=== PATIENT | male | born 1950 | race Caucasian/White ===

== ENCOUNTER 2018-07-27 10:14 | Day surgery (SDC) | payer MEDICARE, OTHER ==
[~2018-07-27 10:14] MED LIST: PROPOFOL INJ 200 MG/20 ML VIAL IV ONE
[2018-07-27] MEDS ORDERED: PROPOFOL INJ 200 MG/20 ML VIAL IV ONE (11:55)
[2018-07-27 12:31] VITALS: BP 129/57
--- NOTE | 2018-07-27 14:39 | Operative Report ---
Operative Report DATE OF SURGERY: 07/27/18 Operative Report: The risks, benefits and alternatives of the procedure including the risk of bleeding, perforation requiring surgery have been explained to the patient in detail and informed consent has been obtained. Patient is placed in a left, lateral decubital position. Timeout was called. Propofol medication is administered. Rectal examination is done which did not reveal any masses, tears or fissures. An Olympus videoscope was introduced into the patient's rectum. The scope was then carefully advanced all the way to the cecum. The cecum was identified by the usual anatomical landmarks of the ileocecal valve as well as the appendiceal office. Photodocumentation is obtained. Scope was then sequentially pulled back via the various segments of the colon including the ascending colon, hepatic flexure, transverse colon, splenic flexure, descending colon and finally into the rectosigmoid portions of the colon. Retroflexion maneuver was performed. PREOPERATIVE DIAGNOSIS: Positive blood in stools POSTOPERATIVE DIAGNOSIS: Ulcerated mass noted at the area of the hepatic flexure status post biopsy. The opposite side was injected with submucosal Sasha ink for location during possible surgery OPERATION: Colonoscopy with biopsy. Colonoscopy with submucosal injection of Sasha ink to provide identification of lesion during surgery SURGEON: TONIA BOATENG ANESTHESIA: LMAC TISSUE REMOVED OR ALTERED: As noted above. COMPLICATIONS: None. ESTIMATED BLOOD LOSS: None. INTRAOPERATIVE FINDINGS: As noted above. PROCEDURE: Patient tolerated the procedure well. No immediate postprocedure complications are noted. Patient discharged in good condition. Discharge date 07/27/2018. Discharge diet: Regular. Discharge activity: Regular. 2-3-week follow-up to discuss findings. Patient is instructed to call the office or proceed to the emergency room should there be any further problems or questions. Wait on a biopsy. We will need surgical referral for surgical resection of the lesion.
== END 2018-07-27 12:31 | disposition home or self-care (01) ==
LOC: END 10:14
PROVIDERS: ATTEND Internal Medicine Gastroenterology
DX: K63.89 Other specified diseases of intestine (principal); K64.8 Other hemorrhoids; R19.5 Other fecal abnormalities; E78.00 Pure hypercholesterolemia, unspecified; E11.9 Type 2 diabetes mellitus without complications; M10.9 Gout, unspecified; I11.0 Hypertensive heart disease with heart failure; G45.0 Vertebro-basilar artery syndrome; Z87.891 Personal history of nicotine dependence; Z79.899 Other long term (current) drug therapy; Z79.84 Long term (current) use of oral hypoglycemic drugs
CPT/HCPCS: 45380; 45381; 82962; 88305 ×2; J2704; 811

== ENCOUNTER → 2018-08-03 | Outpatient (CLI) | payer MEDICARE ==
--- NOTE | 2018-08-03 13:37 | EKG REPORT ---
SEVERITY:- NORMAL ECG - SINUS RHYTHM : Confirmed by: Tito Magaña MD 03-Aug-2018 13:36:21
[2018-08-03 14:03] LABS: ABSOLUTE EOSINOPHILS # (AUTO) 0.2 10^3/uL (0.0-0.6); ABSOLUTE LYMPHOCYTES (AUTO) 1.9 10^3/uL (0.5-4.7); ABSOLUTE MONOCYTES (AUTO) 0.8 10^3/uL (0.1-1.4); ABSOLUTE NEUT (AUTO) 3.7 10^3/uL (1.7-8.2); BASOPHILS % (AUTO) 0.5 % (0-2); EOSINOPHILS % (AUTO) 3.3 % (0-6); HEMATOCRIT 40.1 % (37.9-51.0); HEMOGLOBIN 13.9 g/dL (13.5-17.0); LYMPHOCYTES % (AUTO) 28.6 % (13-45); MEAN CORPUSCULAR HEMOGLOBIN 29.3 pg (27.0-33.4); MEAN CORPUSCULAR HGB CONC 34.7 g/dL (32.0-36.0); MEAN CORPUSCULAR VOLUME 85 fl (80-97); MONOCYTES % (AUTO) 11.6 % (3-13); PLATELET COUNT 299 10^3/uL (150-450); RED BLOOD COUNT 4.74 10^6/uL (4.35-5.55); RED CELL DISTRIBUTION WIDTH 13.9 % (11.5-14.0); TOTAL CELLS COUNTED % (AUTO) 100 %; WHITE BLOOD COUNT 6.6 10^3/uL (4.0-10.5)
[2018-08-03 14:23] LABS: ALANINE AMINOTRANSFERASE 35 U/L (21-72); ALBUMIN 4.6 g/dL (3.5-5.0); ALKALINE PHOSPHATASE 86 U/L (38-126); ANION GAP 13 (5-19); ASPARTATE AMINO TRANSFERASE 22 U/L (17-59); BILIRUBIN,DIRECT 0.2 mg/dL (0.0-0.4); BILIRUBIN,TOTAL 0.5 mg/dL (0.2-1.3); BLOOD UREA NITROGEN 27 mg/dL (7-20); CALCIUM 10.5 mg/dL (8.4-10.2); CARBON DIOXIDE 26 mmol/L (22-30); CHLORIDE 96 mmol/L (98-107); GLUCOSE 250 mg/dL (75-110); POTASSIUM 4.9 mmol/L (3.6-5.0); SODIUM 135.1 mmol/L (137-145); TOTAL PROTEIN 6.9 g/dL (6.3-8.2)
== END ==
LOC: OD 12:46
PROVIDERS: ATTEND Surgery
DX: C18.3 Malignant neoplasm of hepatic flexure (principal)
CPT/HCPCS: 36415; 80053; 85025; 93005; 93010

== ENCOUNTER → 2018-08-06 | Outpatient (CLI) | payer MEDICARE ==
--- NOTE | 2018-08-06 13:18 | RADIOLOGY REPORT (SQ) ---
EXAM DESCRIPTION: CT CHEST WITH COMPLETED DATE/TIME: 08/06/2018 10:46 am REASON FOR STUDY: COLON CA OF THE HEPATIC FLEXURE C18.3 MALIGNANT NEOPLASM OF HEPATIC FLEXURE COMPARISON: None. TECHNIQUE: CT scan of the chest performed using helical scanning technique with dynamic intravenous contrast injection. Images reviewed with lung, soft tissue and bone windows. Reconstructed coronal and sagittal MPR and MIP images reviewed. All images stored on PACS. All CT scanners at this facility use dose modulation, iterative reconstruction, and/or weight based d osing when appropriate to reduce radiation dose to as low as reasonably achievable (ALARA). [facility]: Dose Right [facility]: CareDose [facility]: Dose Right [facility]: Teradose 4D [facility]: [employer] CONTRAST TYPE AND DOSE: 83 mL Omnipaque 350- low osmolar. RENAL FUNCTION: Creatinine 0.89. RADIATION DOSE: . LIMITATIONS: None. FINDINGS: LUNGS AND PLEURA: Mild centrilobular emphysema. 7 mm nodule in the posterior right lung b ase near the posterior costophrenic angle (axial series 6, image 101). There is also a 3 mm nodule i n the medial right lung base (axial series 6, image 98). No other nodules or masses. No infiltrates . No pneumothorax. No effusions. HILAR AND MEDIASTINAL STRUCTURES: No identified masses or abnormal nodes. HEART AND VASCULAR STRUCTURES: No aneurysm or dissection. No central pulmonary emboli. No pericardi al effusion. HARDWARE: None in the chest. UPPER ABDOMEN: See separate report of the CT of the abdomen. THYROID AND OTHER SOFT TISSUES: No masses. No adenopathy. BONES: No significant finding. OTHER: No other significant finding. IMPRESSION: 3 MM AND 7 MM NODULES IN THE RIGHT LUNG BASE, NONSPECIFIC. GIVEN THE HISTORY OF COLON C ANCER, EARLY METASTASES ARE NOT EXCLUDED. THESE ARE TOO SMALL FOR FURTHER EVALUATION WITH PET SCAN A ND NOT AMENABLE TO PERCUTANEOUS CT BIOPSY. FOLLOW-UP CT RECOMMENDED TO MONITOR FOR ANY SIGNIFICANT C HANGE. NO OTHER SIGNIFICANT FINDINGS IN THE CHEST. TECHNICAL DOCUMENTATION: JOB ID: [id number] Quality ID # [id number]: Final reports with documentation of one or more dose reduction techniques (e.g., Au tomated exposure control, adjustment of the mA and/or kV according to patient size, use of iterative reconstruction technique) 2010 [employer]- All Rights Reserved Reading location - IP/workstation name: [email or web address]
--- NOTE | 2018-08-06 13:33 | RADIOLOGY REPORT (SQ) ---
EXAM DESCRIPTION: CT ABD/PELVIS WITH IV ORAL COMPLETED DATE/TIME: 08/06/2018 10:46 am REASON FOR STUDY: COLON CA OF THE HEPATIC FLEXURE C18.3 MALIGNANT NEOPLASM OF HEPATIC FLEXURE COMPARISON: None. TECHNIQUE: CT scan of the abdomen and pelvis performed using helical scanning technique with dynamic intravenous contrast injection. No oral contrast. Images reviewed with lung, soft tissue, and bone windows. Reconstructed coronal and sagittal MPR images reviewed. Delayed images for evaluation of the urinary system also acquired. All images stored on PACS. All CT scanners at this facility use dose modulation, iterative reconstruction, and/or weight based d osing when appropriate to reduce radiation dose to as low as reasonably achievable (ALARA). [facility]: Dose Right [facility]: CareDose [facility]: Dose Right [facility]: Teradose 4D [facility]: [employer] CONTRAST TYPE AND DOSE: contrast/concentration: Isovue 350.00 mg/ml; Total Contrast Delivered: 83.0 ml; Total Saline Delivered: 69.0 ml RENAL FUNCTION: Creatinine 0.89. RADIATION DOSE: CT Rad equipment meets quality standard of care and radiation dose reduction techniq ues were employed. CTDIvol: 4.7 - 5.2 mGy. DLP: 678 mGy-cm.. LIMITATIONS: None. FINDINGS: LOWER CHEST: No significant findings. No nodules or infiltrates. LIVER: Normal size. No masses. No dilated ducts. SPLEEN: Normal size. No focal lesions. PANCREAS: No masses. No significant calcifications. No adjacent inflammation or peripancreatic fluid collections. Pancreatic duct not dilated. GALLBLADDER: No identified stones by CT criteria. No inflammatory changes to suggest cholecystitis. ADRENAL GLANDS: No significant masses or asymmetry. RIGHT KIDNEY AND URETER: No solid masses. No significant calcifications. No hydronephrosis or hyd roureter. LEFT KIDNEY AND URETER: Congenital malrotation. No solid masses. Possible duplication of the colle cting system versus altered positioning due to malrotation. 6 x 9 mm calculus in the lower renal pel vis. Average Hounsfield units a just over 1,000. No hydronephrosis or hydroureter. AORTA AND VESSELS: No aneurysm. No dissection. Renal arteries, SMA, celiac without stenosis. RETROPERITONEUM: No retroperitoneal adenopathy, hemorrhage or masses. BOWEL AND PERITONEAL CAVITY: Small focal area of mucosal soft tissue prominence in the lumen of the h epatic flexure (axial image 23 and 24). No masses or inflammatory changes. No free fluid or peritone al masses. APPENDIX: Normal. PELVIS: No mass. No free fluid. Normal bladder. ABDOMINAL WALL: No masses. No hernias. BONES: No significant or acute findings. OTHER: No other significant finding. IMPRESSION: 1. CONGENITAL MALROTATION OF THE LEFT KIDNEY. 6 X 9 MM NONOBSTRUCTING CALCULUS IN THE LOWER POLE. P OSSIBLE DUPLICATION OF THE COLLECTING SYSTEM VERSUS ALTERED POSITIONING DUE TO MALROTATION. 2. THE HISTORY INDICATES COLON CANCER IN THE HEPATIC FLEXURE. THERE IS A SMALL FOCAL AREA OF MUCOSAL SOFT TISSUE PROMINENCE IN THE HEPATIC FLEXURE OF THE COLON WHICH HAS A NONSPECIFIC APPEARANCE ON CT BUT COULD INDICATE A SMALL MUCOSAL LESION. NO SIGNIFICANT THICKENING OF THE WALL OR EXTENSION INTO T HE PERICOLONIC TISSUES. 3. NO OTHER SIGNIFICANT OR ACUTE FINDING IN THE ABDOMEN OR PELVIS ON CT SCAN WITH IV CONTRAST. NO CT EVIDENCE OF METASTATIC INVOLVEMENT IN THE ABDOMEN OR PELVIS. TECHNICAL DOCUMENTATION: JOB ID: [id number] Quality ID # [id number]: Final reports with documentation of one or more dose reduction techniques (e.g., Au tomated exposure control, adjustment of the mA and/or kV according to patient size, use of iterative reconstruction technique) 2010 [employer]- All Rights Reserved Reading location - IP/workstation name: [email or web address]
== END ==
LOC: RAD 10:07
PROVIDERS: ATTEND Surgery
DX: C18.3 Malignant neoplasm of hepatic flexure (principal)
CPT/HCPCS: 71260; 74177

== ENCOUNTER 2018-08-27 08:12 | Inpatient (IN) | payer MEDICARE ==
[~2018-08-27 08:12] MED LIST changes: +CEFAZOLIN 1 GM/D5W RTU 1 GM/50 ML RTUPB IV ONE; +CEFAZOLIN 1 GM/D5W RTU 1 GM/50 ML RTUPB IV PRN; +LACTATED RINGERS 1000 ML IV PRN; +LIDOCAINE 0.5% INJ-PF (5 MG/ML) 50 ML SDV SUBCUT PRN; +METRONIDAZOLE 500 MG/NS RTU 500 MG/100 ML RTUPB IV ONE; +METRONIDAZOLE 500 MG/NS RTU 500 MG/100 ML RTUPB IV PRN; -PROPOFOL INJ 200 MG/20 ML VIAL IV ONE
[2018-08-27] MEDS ORDERED: ROCURONIUM BROMIDE INJ 50 MG/5 ML VIAL IV ONE (10:00)
[2018-08-27] MEDS ORDERED: ONDANSETRON HCL INJ/PF 4 MG/2 ML SDV ONE (10:00)
[2018-08-27] MEDS ORDERED: GLYCOPYRROLATE 1 MG/5 ML SYRINGE ONE (10:00)
[2018-08-27] MEDS ORDERED: DEXAMETHASONE SOD PHOSPHATE INJ 4 MG/1 ML VIAL ONE (10:00)
[2018-08-27] MEDS ORDERED: NEOSTIGMINE METHYLSULFATE 10 MG/10 ML VIAL ONE (10:00)
[2018-08-27] MEDS ORDERED: PHENYLEPHRINE HCL INJ/PF 10 MG/1 ML SDV ONE (10:00)
[2018-08-27] MEDS ORDERED: SUCCINYLCHOLINE CHLORIDE INJ 200 MG/10 ML VIAL ONE (10:00)
[2018-08-27] MEDS ORDERED: HYDROMORPHONE HCL INJ/PF 2 MG/ML AMPULE ONE (16:08)
[2018-08-27] MEDS ORDERED: FENTANYL CITRATE INJ/PF 100 MCG/2 ML AMPUL ONE (16:08)
[2018-08-27] MEDS ORDERED: ACETAMINOPHEN 1,000 MG/100 ML RTUPB IV ONE (16:08)
[2018-08-27] MEDS ORDERED: PROPOFOL INJ 200 MG/20 ML VIAL IV ONE (16:08)
[2018-08-27] MEDS ORDERED: MIDAZOLAM 2 MG/2 ML INJ ONE (16:08)
[2018-08-27] MEDS ORDERED: BUPIVACAINE HCL 0.25% /EPINEPHRINE INJ/PF 30 ML SDV ONE (16:28)
[2018-08-27] MEDS ORDERED: DEXTROSE 50%-WATER 25 GM/50 ML DISP.SYRIN IV ONE (16:29)
[2018-08-27] MEDS ORDERED: RINGERS SOLUTION,LACTATED 1,000 ML IV ONE (17:15)
[2018-08-27] MEDS ORDERED: MEPERIDINE HCL/PF INJ 25 MG/1 ML DISP.SYRIN IV PRN (17:27)
[2018-08-27] MEDS ORDERED: DIPHENHYDRAMINE HCL 50 MG/ML VIAL IV PRN (17:27)
[2018-08-27] MEDS ORDERED: MORPHINE SULFATE 10 MG/ML INJ IV PRN ×2 (17:27→19:12)
[2018-08-27] MEDS ORDERED: FENTANYL CITRATE INJ/PF 100 MCG/2 ML AMPUL IV PRN ×3 (17:27)
[2018-08-27] MEDS ORDERED: ONDANSETRON HCL INJ/PF 4 MG/2 ML SDV IV PRN (17:27)
--- NOTE | 2018-08-27 19:10 | Operative Report ---
Nonrecallable Operative Report DATE OF SURGERY: 08/27/18 PREOPERATIVE DIAGNOSIS: right colon cancer POSTOPERATIVE DIAGNOSIS: right colon cancer OPERATION: laparoscopic right hemicolectomy SURGEON: OSKAR LABOY ANESTHESIA: GA TISSUE REMOVED OR ALTERED: right colon COMPLICATIONS: none ESTIMATED BLOOD LOSS: 50cc INTRAOPERATIVE FINDINGS: no obivious metastatic disease PROCEDURE: see dictation
--- NOTE | 2018-08-27 20:19 | OPERATIVE REPORT E ---
Operative Report NAME: GILBERT ALCALA : 1950 AGE: 68Y DATE OF SURGERY: 08/27/2018 ROOM: OR PREOPERATIVE DIAGNOSIS: RIGHT COLON CANCER. POSTOPERATIVE DIAGNOSIS: RIGHT COLON CANCER. OPERATION: LAPAROSCOPIC RIGHT HEMICOLECTOMY. SURGEON: OSKAR LABOY M.D. PROCEDURE: The patient was brought to the operating room in awake, alert, and stable condition, placed on the operating table in supine position and induced under general anesthesia, and intubated. The abdomen was prepped and draped in the usual sterile manner for the procedure. A Veress needle was placed into the umbilicus and the abdomen was insufflated with 6 liters of CO2 gas. An infraumbilical 10 mm incision was made with a 12 blade, and a 10 mm port placed into the abdominal cavity. Intraabdominal visualization revealed no evidence of a Veress needle or trocar injury. Two right-sided abdominal ports were placed under direct vision. They were 5 mm. A right lower quadrant 5 mm port was placed under direct vision. We identified the colon and the liver. The liver had normal anatomy and contour. There was no evidence of any metastatic disease. I retracted the omentum anteriorly and noted the transverse colon. I began at the middle colic vessels and mobilized the proximal transverse colon off the omental apron with LigaSure device, and carried this around the hepatic flexure with the LigaSure device. At this point, we identified the area where it had been previously tattooed by the galley stripper. I continued around the peritoneal reflection down the ascending colon to the cecum. We mobilized the cecum and the peritoneal attachments of the terminal ileum from the right lower quadrant with the LigaSure device. Finally, when we had the entire omentum mobilized, I identified the middle colic vessels and elected to perform a right hemicolectomy just to the right of the middle colic vessels. Once the right colon was deemed floppy enough for delivering through a wound, the pneumoperitoneum was reduced. We made a small transverse incision in the right abdominal wall. We carried that down to the subcutaneous tissue with Bovie cautery. We divided the small lateral aspect of the rectus muscle with Bovie cautery and gained access to the posterior rectus sheath, and opened this up with Bovie cautery. We placed a small ynes retractor into the wound and delivered the right colon and terminal ileum in through the wound. I divided the transverse colon with one firing of the endo-JOJO stapler with a 16 mm load just to the right of the middle colic vessels. We then came across the colonic mesentery next to the right colic artery all the way from the transverse colon through the ileocolic artery to the terminal ileum. At approximately 5 to 8 cm proximal to the terminal ileum, I divided the ileum and removed the specimen. We then performed a functional end-to-end anastomosis between the terminal ileum and the transverse colon. This was sewn in 2 layers, the posterior layer being 2-0 silk sutures and the running inner layer 3-0 Vicryl suture. Once the anastomosis was accomplished, we closed the mesenteric defect with a running 3-0 Maxon suture and returned the colon back to the abdominal cavity. We closed the posterior rectus sheath with a running 0 PDS suture and the anterior sheath was closed with interrupted 0 Vicryl sutures. We then reexplored the abdominal cavity and looked at our anastomosis. It appeared to be healthy. There was no evidence of any bleeding. The mesenteric defect had been closed successfully and it was in good orientation. We therefore reduced the pneumoperitoneum and we elected to then close all skin incisions. These were all closed with intracuticular 3-0 Biosyn suture. Steri-Strips completed the procedure. Estimated blood loss was less than 50 mL. Sponge and needle counts were correct x2. The patient was awakened in the operating room, extubated, and transferred to recovery in stable condition. No complications. DICTATING PHYSICIAN: OSKAR LABOY M.D. [id number] PHY#: [id number] ID: [id number] JOB#: [id number] ACCT: [id number] cc:OSKAR LABOY M.D. > MTDD
[2018-08-27] MEDS: HEPARIN SOD (PORCINE) 5,000 UNIT/ML 1 ML SYRINGE SUBCUT SCH (23:11)
[2018-08-27] MEDS: POTASSI CL 20 MEQ/D5-1/2NS 1L 1,000 ML IV PRN (23:33)
[2018-08-28] MEDS: HEPARIN SOD (PORCINE) 5,000 UNIT/ML 1 ML SYRINGE SUBCUT SCH ×3 (06:31→22:05)
[2018-08-28 06:52] LABS: ABSOLUTE LYMPHOCYTES (AUTO) 1.3 10^3/uL (0.5-4.7); ABSOLUTE MONOCYTES (AUTO) 0.8 10^3/uL (0.1-1.4); ABSOLUTE NEUT (AUTO) 6.1 10^3/uL (1.7-8.2); BASOPHILS % (AUTO) 0.1 % (0-2); EOSINOPHILS % (AUTO) 0.1 % (0-6); HEMATOCRIT 35.5 % (37.9-51.0); HEMOGLOBIN 12.5 g/dL (13.5-17.0); LYMPHOCYTES % (AUTO) 15.8 % (13-45); MEAN CORPUSCULAR HEMOGLOBIN 29.6 pg (27.0-33.4); MEAN CORPUSCULAR HGB CONC 35.3 g/dL (32.0-36.0); MEAN CORPUSCULAR VOLUME 84 fl (80-97); MONOCYTES % (AUTO) 9.5 % (3-13); PLATELET COUNT 260 10^3/uL (150-450); RED BLOOD COUNT 4.23 10^6/uL (4.35-5.55); SEGMENTED NEUTROPHILS % (AUTO) 74.5 % (42-78); TOTAL CELLS COUNTED % (AUTO) 100 %; WHITE BLOOD COUNT 8.2 10^3/uL (4.0-10.5)
[2018-08-28 07:13] LABS: ALANINE AMINOTRANSFERASE 46 U/L (21-72); ALBUMIN 3.4 g/dL (3.5-5.0); ALKALINE PHOSPHATASE 100 U/L (38-126); ANION GAP 8 (5-19); ASPARTATE AMINO TRANSFERASE 29 U/L (17-59); BILIRUBIN,DIRECT 0.3 mg/dL (0.0-0.4); BILIRUBIN,TOTAL 0.8 mg/dL (0.2-1.3); BLOOD UREA NITROGEN 11 mg/dL (7-20); CALCIUM 9.2 mg/dL (8.4-10.2); CARBON DIOXIDE 27 mmol/L (22-30); CHLORIDE 102 mmol/L (98-107); GLUCOSE 259 mg/dL (75-110); POTASSIUM 4.9 mmol/L (3.6-5.0); SODIUM 136.9 mmol/L (137-145)
[2018-08-28] MEDS: POTASSI CL 20 MEQ/D5-1/2NS 1L 1,000 ML IV PRN (09:49)
[2018-08-28] MEDS: CALCIUM CARBONATE 500 MG TAB.CHEW PO PRN ×2 (13:15→22:09)
--- NOTE | 2018-08-28 13:25 | PDOC PROGRESS REPORT ---
Subjective Progress Note for:: 08/28/18 Subjective:: feels well, min pain some reflux Reason For Visit: COLON CANCER Physical Exam Vital Signs: Temp Pulse Resp BP Pulse Ox 99.0 F 72 20 154/72 H 98 08/28/18 12:00 08/28/18 12:00 08/28/18 12:00 08/28/18 12:00 08/28/18 12:00 Intake & Output 08/27/18 08/28/18 08/29/18 06:59 06:59 06:59 Intake Total 3550 1000 Output Total 340 850 Balance 3210 150 Weight 60.4 kg General appearance: PRESENT: no acute distress, cooperative Head exam: PRESENT: atraumatic Eye exam: PRESENT: EOMI, PERRLA Mouth exam: PRESENT: moist Neck exam: PRESENT: full ROM Cardiovascular exam: PRESENT: RRR GI/Abdominal exam: PRESENT: soft Rectal exam: PRESENT: deferred Extremities exam: PRESENT: full ROM Musculoskeletal exam: PRESENT: full ROM Neurological exam: PRESENT: alert, awake, oriented to person, oriented to place, oriented to time, oriented to situation Skin exam: PRESENT: dry Results Laboratory Results: 08/28/18 06:25 08/28/18 06:25 08/27/18 08/28/18 08/28/18 16:56 06:25 06:25 WBC 8.2 RBC 4.23 L Hgb 12.5 L Hct 35.5 L MCV 84 MCH 29.6 MCHC 35.3 RDW 13.0 Plt Count 260 Seg Neutrophils % 74.5 Lymphocytes % 15.8 Monocytes % 9.5 Eosinophils % 0.1 Basophils % 0.1 Absolute Neutrophils 6.1 Absolute Lymphocytes 1.3 Absolute Monocytes 0.8 Absolute Eosinophils 0.0 Absolute Basophils 0.0 Sodium 136.9 L Potassium 4.9 Chloride 102 Carbon Dioxide 27 Anion Gap 8 BUN 11 Creatinine 0.85 Est GFR ( Amer) > 60 Est GFR (Non-Af Amer) > 60 Glucose 259 H Calcium 9.2 Magnesium 1.3 L Total Bilirubin 0.8 AST 29 ALT 46 Alkaline Phosphatase 100 Total Protein 6.0 L Albumin 3.4 L Blood Type O NEGATIVE Antibody Screen NEGATIVE Assessment & Plan - Plan Summary Plan Summary: 1 day post rt heimcolectomy doing well atilio clear liquids cont present course, increase activity awating return of bowel function
[2018-08-28] MEDS ORDERED: DEXTROSE 50%-WATER SYRINGE 12.5 GM/25 ML DOSE IV PRN (17:00)
[2018-08-28] MEDS ORDERED: GLUCAGON,HUMAN RECOMB 1 MG INJ IM PRN (17:00)
[2018-08-28] MEDS ORDERED: DEXTROSE 50%-WATER SYRINGE 25 GM/50 ML DOSE IV PRN (17:00)
[2018-08-28] MEDS ORDERED: DEXTROSE 40% GEL 15 GM TUBE PO PRN (17:00)
[2018-08-28] MEDS ORDERED: DEXTROSE 40% GEL 15 GM TUBE X 2 PO PRN (17:00)
[2018-08-28] MEDS: POTASSI CL 20 MEQ/NS 1L 1000 ML IV PRN (18:25)
[2018-08-28] MEDS ORDERED: INSULIN REG, HUMAN 100 UNIT/ML 3 ML VIAL (PYX) SUBCUT ONE (18:30)
[2018-08-28] MEDS ORDERED: INSULIN REG, HUMAN 100 UNIT/ML 3 ML VIAL (PYX) ONE (18:50)
[2018-08-28] MEDS ORDERED: DIPHENHYDRAMINE HCL 50 MG/ML VIAL ONE (21:48)
[2018-08-28] MEDS ORDERED: DIPHENHYDRAMINE HCL 50 MG/ML VIAL IV ONE (22:00)
[2018-08-28] MEDS: INSULIN REG, HUMAN 100 UNIT/ML 3 ML VIAL (PYX) SUBCUT SCH (22:04)
[2018-08-29] MEDS: HEPARIN SOD (PORCINE) 5,000 UNIT/ML 1 ML SYRINGE SUBCUT SCH ×3 (05:51→22:16)
[2018-08-29] MEDS: POTASSI CL 20 MEQ/NS 1L 1000 ML IV PRN (05:56)
[2018-08-29] MEDS: INSULIN REG, HUMAN 100 UNIT/ML 3 ML VIAL (PYX) SUBCUT SCH ×4 (08:37→22:22)
--- NOTE | 2018-08-29 10:21 | PDOC PROGRESS REPORT ---
Subjective Progress Note for:: 08/29/18 Subjective:: feels well had bm Reason For Visit: COLON CANCER Physical Exam Vital Signs: Temp Pulse Resp BP Pulse Ox 99.6 F 119 H 16 136/79 H 97 08/29/18 08:27 08/29/18 08:27 08/29/18 08:27 08/29/18 08:27 08/29/18 08:27 Intake & Output 08/28/18 08/29/18 08/30/18 06:59 06:59 06:59 Intake Total 3550 3380 Output Total 340 4200 Balance 3210 -820 Weight 60.4 kg General appearance: PRESENT: no acute distress Eye exam: PRESENT: EOMI Mouth exam: PRESENT: moist Respiratory exam: PRESENT: clear to auscultation jayesh Cardiovascular exam: PRESENT: RRR Pulses: PRESENT: normal radial pulses, normal femoral pulses Vascular exam: PRESENT: normal capillary refill GI/Abdominal exam: PRESENT: soft Rectal exam: PRESENT: deferred Extremities exam: PRESENT: full ROM Musculoskeletal exam: PRESENT: full ROM Neurological exam: PRESENT: awake, oriented to person, oriented to place, oriented to time, oriented to situation Psychiatric exam: PRESENT: appropriate affect Skin exam: PRESENT: dry Results Laboratory Results: 08/28/18 06:25 08/28/18 06:25 Assessment & Plan - Plan Summary Plan Summary: pod 2 lap rt heimicolectomy doing well today passed stool x2 (watery,greenish) abd soft, non tender hungry plan will advance to full liqudis prob home in am.
[2018-08-29] MEDS ORDERED: POTASSI CL 20 MEQ/NS 1L 1,000 ML IV PRN (10:23)
[2018-08-30 00:07] VITALS: BP 135/68
[2018-08-30] MEDS: HEPARIN SOD (PORCINE) 5,000 UNIT/ML 1 ML SYRINGE SUBCUT SCH (06:30)
[2018-08-30] MEDS: INSULIN REG, HUMAN 100 UNIT/ML 3 ML VIAL (PYX) SUBCUT SCH ×2 (09:17→11:36)
--- NOTE | 2018-08-30 10:29 | PDOC PROGRESS REPORT ---
Subjective Progress Note for:: 08/30/18 Subjective:: post lap rt hemicolectomy Reason For Visit: COLON CANCER Physical Exam Vital Signs: Temp Pulse Resp BP Pulse Ox 98.2 F 80 16 135/68 H 100 08/30/18 00:00 08/30/18 00:00 08/30/18 00:00 08/30/18 00:00 08/30/18 00:00 Intake & Output 08/29/18 08/30/18 08/31/18 06:59 06:59 06:59 Intake Total 3380 2360 Output Total 4200 2450 Balance -820 -90 Weight 60.4 kg General appearance: PRESENT: no acute distress Head exam: PRESENT: normocephalic Eye exam: PRESENT: EOMI Mouth exam: PRESENT: moist Neck exam: PRESENT: full ROM Respiratory exam: PRESENT: clear to auscultation jayesh Cardiovascular exam: PRESENT: RRR Pulses: PRESENT: normal radial pulses, normal femoral pulses GI/Abdominal exam: PRESENT: soft Rectal exam: PRESENT: deferred Extremities exam: PRESENT: full ROM Musculoskeletal exam: PRESENT: full ROM Neurological exam: PRESENT: alert, awake, oriented to person, oriented to place, oriented to time, oriented to situation Psychiatric exam: PRESENT: appropriate affect Skin exam: PRESENT: dry Results Laboratory Results: 08/28/18 06:25 08/28/18 06:25 Assessment & Plan - Plan Summary Plan Summary: doing well iwth full liquids\ passing stool\ will dc timmons ok for dc home today.
--- NOTE | 2018-08-30 17:24 | DISCHARGE SUMMARY E ---
Discharge Summary NAME: GILBERT ALCALA : 1950 AGE: 68Y ADMITTED: 08/27/2018 DISCHARGED: 08/30/2018 FINAL DIAGNOSIS: Rightsided colon cancer. PROCEDURE: Laparoscopic right hemicolectomy. REASON FOR HOSPITALIZATION/HOSPITAL COURSE: This is a 68-year-old male who was admitted for an elective hemicolectomy for colon cancer that was previously diagnosed on colonoscopy. He was admitted on the date of surgery and he underwent the procedure without complications. Postoperatively, he was transferred to the medical floor. On postoperative day 1, he was doing well. He was started on sips of clear liquids. On postop day 2, the patient continued to do well. He remained afebrile, with stable vital signs, and his clear liquid diet was advanced to a full liquid diet. By postoperative day 3, he had resumption of bowel function. He was tolerating a full liquid diet well. He was afebrile, with stable vital signs. He was ambulating in the hallways and ready for discharge home. Upon discharge, he will resume his own preoperative medications and he will be given tramadol 50 mg, 20 of them, 1 p.o. q.6 p.r.n. pain. He is instructed to slowly resume a regular diet at home, after passing normal bowel movements. He is also instructed to call my office for any increasing abdominal pain, fever, chills, sweats, any redness around his wound or extreme diarrhea. He is also to resume his regular activities, but avoid lifting anything greater than 5 to 10 pounds for the next 4 to 6 weeks. He will be given a 1-week postop appointment with me for a recheck. DICTATING PHYSICIAN: OSKAR LABOY M.D. [id number] PHY#: [id number] ID: [id number] JOB#: [id number] ACCT: [id number] cc:OSKAR LABOY M.D. >
== END 2018-08-30 11:56 | disposition home or self-care (01) | DRG 331 ==
LOC: INOR 09:48 → 4N 20:18
PROVIDERS: ADMIT Surgery; ATTEND Surgery
PROC: 0DTF4ZZ Resection of Right Large Intestine, Percutaneous Endoscopic Approach (ICD-10-PCS; principal; 2018-08-27 12:00)
DX: C18.3 Malignant neoplasm of hepatic flexure (principal); I10 Essential (primary) hypertension; E11.9 Type 2 diabetes mellitus without complications; M19.90 Unspecified osteoarthritis, unspecified site; Z87.891 Personal history of nicotine dependence; Z79.84 Long term (current) use of oral hypoglycemic drugs; Z90.49 Acquired absence of other specified parts of digestive tract
CPT/HCPCS: 36415; 790; 80053; 82962; 83735; 85025; 86850; 86900; 86901; 88309; A6240; J0131; J0330; J0690; J1100; J1170; J1200; J1644; J1815; J2250; J2270; J2370; J2405; J2704; J3010; J3480; J3490

== ENCOUNTER → 2018-11-30 | Outpatient (CLI) | payer MEDICARE ==
--- NOTE | 2018-11-30 13:03 | RADIOLOGY REPORT (SQ) ---
EXAM DESCRIPTION: CT CHEST WITH COMPLETED DATE/TIME: 11/30/2018 9:12 am REASON FOR STUDY: R91.1 SOLITARY PULMONARY NODULE R91.1 SOLITARY PULMONARY NODULE COMPARISON: CT chest 08/06/2018 TECHNIQUE: CT scan of the chest performed using helical scanning technique with dynamic intravenous contrast injection. Images reviewed with lung, soft tissue and bone windows. Reconstructed coronal and sagittal MPR and MIP images reviewed. All images stored on PACS. All CT scanners at this facility use dose modulation, iterative reconstruction, and/or weight based d osing when appropriate to reduce radiation dose to as low as reasonably achievable (ALARA). [facility]: Dose Right [facility]: CareDose [facility]: Dose Right [facility]: Teradose 4D [facility]: [employer] CONTRAST TYPE AND DOSE: contrast/concentration: Isovue 350.00 mg/ml; Total Contrast Delivered: 79.0 ml; Total Saline Delivered: 55.0 ml RENAL FUNCTION: GFR > 60. RADIATION DOSE: CT Rad equipment meets quality standard of care and radiation dose reduction techniq ues were employed. CTDIvol: 5.1 mGy. DLP: 204 mGy-cm. . LIMITATIONS: None. FINDINGS: LUNGS AND PLEURA: No worrisome pulmonary nodules. 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 3 mm nodule described at the left lung base on CT 08/06/2018 is no longer identified. Obstructive lung disease is present. No acute infiltrates or pleural effusions. Airways are widely patent. HILAR AND MEDIASTINAL STRUCTURES: Moderate size retrocardiac hiatal hernia HEART AND VASCULAR STRUCTURES: No aneurysm or dissection. No central pulmonary emboli. No pericardi al effusion. HARDWARE: None in the chest. UPPER ABDOMEN: Clips right upper quadrant post cholecystectomy THYROID AND OTHER SOFT TISSUES: No masses. No adenopathy. BONES: Old healed bilateral lower rib fractures OTHER: No other significant finding. IMPRESSION: Obstructive lung disease. No worrisome pulmonary nodules TECHNICAL DOCUMENTATION: JOB ID: [id number] Quality ID # [id number]: Final reports with documentation of one or more dose reduction techniques (e.g., Au tomated exposure control, adjustment of the mA and/or kV according to patient size, use of iterative reconstruction technique) 2010 [employer]- All Rights Reserved Reading location - IP/workstation name: [email or web address]
== END ==
LOC: RAD 08:22
PROVIDERS: ATTEND Internal Medicine Hematology & Oncology
DX: C18.2 Malignant neoplasm of ascending colon (principal); R91.1 Solitary pulmonary nodule
CPT/HCPCS: 71260; 82565

== ENCOUNTER 2019-06-14 07:07 | Day surgery (SDC) | payer MEDICARE ==
[2019-06-14] MEDS ORDERED: PROPOFOL INJ 200 MG/20 ML VIAL IV ONE (07:30)
[2019-06-14 08:58] VITALS: BP 105/55
--- NOTE | 2019-06-14 13:29 | Operative Report ---
Operative Report DATE OF SURGERY: 06/14/19 Operative Report: The risk, benefits and alternatives of the procedure including the risk of bleeding, perforation requiring surgery have been explained to the patient in detail and informed consent has been obtained. The patient is taken back to the endoscopy suite and placed in a left, lateral decubital position. Timeout was called. Propofol medication is administered. Rectal examination is done which did not reveal any masses, tears or fissures. An Olympus videoscope was introduced into the patient's rectum. Scope was then carefully advanced all the way to the cecum. The cecum was identified by the usual anatomical landmarks including the ileocecal valve as well as the appendiceal office. Photodocumentation is obtained. Scope was then sequentially pulled back via the various segments of the colon including the ascending colon, splenic flexure, transverse colon, splenic flexure, descending colon finally into the rectosigmoid portions of the colon. Retroflexion maneuvers performed. PREOPERATIVE DIAGNOSIS: History of polyp, with right hemicolectomy in the past POSTOPERATIVE DIAGNOSIS: Polyp was removed via snare polypectomy and retrieved in the rectosigmoid area. Biopsies obtained at the anastomosis to rule out recurrence of possible malignancy. Internal hemorrhoids OPERATION: Colonoscopy with snare polypectomy. Colonoscopy with biopsy SURGEON: TONIA BOATENG ANESTHESIA: LMAC TISSUE REMOVED OR ALTERED: As noted above. COMPLICATIONS: None. ESTIMATED BLOOD LOSS: None. INTRAOPERATIVE FINDINGS: As noted above. PROCEDURE: Patient tolerated the procedure well. No immediate postprocedure complications are noted. Patient is discharged in good condition. Discharge date 06/14/2019. Discharge diet: Regular. Discharge activity: Regular. 2 to 3-week follow-up to discuss findings. Patient is instructed to call the office or proceed to the emergency room should there be any further problems or questions. 1 year surveillance colonoscopy.
== END 2019-06-14 08:48 | disposition home or self-care (01) ==
LOC: END 07:07
PROVIDERS: ATTEND Internal Medicine Gastroenterology
DX: Z12.11 Encounter for screening for malignant neoplasm of colon (principal); K64.8 Other hemorrhoids; K63.5 Polyp of colon; Z86.010 Personal history of colon polyps; I10 Essential (primary) hypertension; E11.9 Type 2 diabetes mellitus without complications; J44.9 Chronic obstructive pulmonary disease, unspecified; Z79.899 Other long term (current) drug therapy; Z79.84 Long term (current) use of oral hypoglycemic drugs
CPT/HCPCS: 45380; 45385; 82962; 88305 ×2; 00811; J2704; 811